=== PATIENT | female | born 1980 | race Caucasian/White ===

== ENCOUNTER → 2016-09-09 | Outpatient (CLI) | payer OTHER ==
--- NOTE | 2016-09-09 16:34 | DX ---
Chest, PA and Lateral History: Dyspnea on exertion x2 months, chest pressure, R06.02 Findings: Lungs are clear, without infiltrate or consolidation. Heart size is normal. Sparse vessels in the upper lobes could possibly indicate underlying asthma or doubt emphysema in this young woman. There is no adenopathy or mass lesion. There is no pleural effusion, pneumomediastinum or pneumothora x. Bones are unremarkable for age. There is no evidence for splenomegaly. Impression: Sparse upper lobe vessels. Is there any wheezing?
== END ==
LOC: BMCIMAGING 11:52
PROVIDERS: ATTEND Internal Medicine
DX: R06.02 Shortness of breath (principal)